=== PATIENT | male | born 1970 | race Caucasian/White ===

== ENCOUNTER 2022-08-07 17:04 | Inpatient (IN) | payer BC, OTHER ==
[2022-08-07] MEDS ORDERED: ASPIRIN 81 MG PO STA (17:18)
[2022-08-07] MEDS ORDERED: NITROGLYCERIN OINT 1 INCH/GM PACKET TOPICAL STA (17:18)
[2022-08-07] MEDS ORDERED: HEPARIN SODIUM 1,000 UN/ML (10ML VL) IV ONE ×2 (17:18→18:20)
[2022-08-07] MEDS: NITROGLYCERIN SL TABS 0.4 MG TAB SUBLINGUAL STA ×2 (17:22→17:38)
--- NOTE | 2022-08-07 17:28 | ED ---
General Adult HPI - General Chief complaint: Chest Pain Stated complaint: chest pain Time Seen by Provider: 08/07/22 17:10 Source: patient, RN notes reviewed, old records reviewed Mode of arrival: ambulatory Limitations: no limitations - History of Present Illness Initial comments: This is a 51-year-old male who presents emergency Department complaining of chest heaviness for the last couple of hours. Patient states it radiates to the left upper back. Patient states he has a positive family history and he is a smoker. Patient denies any diabetes high blood pressure high cholesterol that he knows of. Patient denies shortness of breath or any diaphoretic episodes. Patient denies nausea or vomiting. Patient denies any recent fever chills or c ough. Patient states had no heart history that he knows of. Patient denies any swelling to the legs or calf tenderness. Patient denies headache patient denies numbness or weakness. Patient denies any lightheadedness or dizziness - Related Data Allergies Allergy/AdvReac Type Severity Reaction Status Date / Time Penicillins Allergy Unknown Verified 08/07/22 17:09 Review of Systems ROS Statement: Those systems with pertinent positive or pertinent negative responses have been documented in the HPI. ROS Other: All systems not noted in ROS Statement are negative. Past Medical History Past Medical History: No Reported History History of Any Multi-Drug Resistant Organisms: None Reported Past Surgical History: Orthopedic Surgery Additional Past Surgical History / Comment(s): hip replacements Past Psychological History: No Psychological Hx Reported Smoking Status: Current every day smoker Past Alcohol Use History: Occasional Past Drug Use History: None Reported General Exam - General Exam Comments Initial Comments: GENERAL: Patient is well-developed and well-nourished. Patient is nontoxic and well- hydrated and is in mild distress. ENT: Neck is soft and supple. No significant lymphadenopathy is noted. Oropharynx is clear. Moist mucous membranes. Neck has full range of motion without eliciting any pain. EYES: The sclera were anicteric and conjunctiva were pink and moist. Extraocular movements were intact and pupils were equal round and reactive to light. Eyelids were unremarkable. PULMONARY: Unlabored respirations. Good breath sounds bilaterally. No audible rales rhonc hi or wheezing was noted. CARDIOVASCULAR: There is a regular rate and rhythm without any murmurs gallops or rubs. ABDOMEN: Soft and nontender with normal bowel sounds. SKIN: Skin is clear with no lesions or rashes and otherwise unremarkable. NEUROLOGIC: Patient is alert and oriented x3. Cranial nerves II through XII are grossly intact. Motor and sensory are also intact. Normal speech, volume and content. Symmetrical smile. MUSCULOSKELETAL: Normal extremities with adequate strength and full range of motion. LYMPHATICS: No significant lymphadenopathy is noted PSYCHIATRIC: Normal psychiatric evaluation. Limitations: no limitations Course Vital Signs 08/07/22 08/07/22 17:07 17:26 Temperature 97.9 F 98.8 F Pulse Rate 74 108 H Respiratory 16 16 Rate Blood Pressure 184/89 200/114 O2 Sat by Pulse 97 98 Oximetry Medical Decision Making - Medical Decision Making EKG was sinus rhythm at 67 bpm CO interval 238 QRS is under 16 QT interval 383 QTC is 398. Patient's EKG showed ST segment elevation in leads II, III, and F aVF. I called a STEMI overhead. I spoke with Dr. James he agreed to come down and see the patient immediately. Chest x-ray shows no acute abnormality. Critical Care Time Critical Care Time: Yes Total Critical Care Time: 35 Disposition Clinical Impression: Dissection of thoracic aorta, ST elevation myocardial infarction (STEMI) Disposition: ADMITTED IP TO THIS HOSP Referrals: Alessio Clifton MD [Primary Care Provider] - 1-2 days Time of Disposition: 17:28
[2022-08-07 17:41] LABS: Basophils # (A) 0.1 k/uL (0-0.2); Basophils % (A) 1 %; Eosinophils # (A) 0.2 k/uL (0-0.7); Eosinophils % (A) 2 %; HCT 50.2 % (39.0-53.0); HGB 16.7 gm/dL (13.0-17.5); Lymphocytes # (A) 3.4 k/uL (1.0-4.8); Lymphocytes % (A) 28 %; MCH 30.2 pg (25.0-35.0); MCHC 33.2 g/dL (31.0-37.0); MCV 90.8 fL (80.0-100.0); Mean Platelet Volume 8.9; Monocytes # (A) 0.7 k/uL (0-1.0); Monocytes % (A) 6 %; Neutrophils # (A) 7.3 k/uL (1.3-7.7); Neutrophils % (A) 60 %; Platelet Count 240 k/uL (150-450); RBC 5.53 m/uL (4.30-5.90); RDW 13.8 % (11.5-15.5); WBC 12.1 k/uL (3.8-10.6)
[2022-08-07 17:44] LABS: ALT 89 U/L (4-49); AST 75 U/L (17-59); African American GFR (CKD) >90 (>60 ml/min/1.73 sqM); Albumin 5.1 g/dL (3.5-5.0); Alkaline Phosphatase 109 U/L (38-126); Anion Gap 17 mmol/L; Blood Urea Nitrogen 13 mg/dL (9-20); Calcium 9.9 mg/dL (8.4-10.2); Carbon Dioxide 20 mmol/L (22-30); Chloride 103 mmol/L (98-107); Glucose 257 mg/dL (74-99); Magnesium 2.1 mg/dL (1.6-2.3); Non-African American GFR(CKD) >90 (>60 ml/min/1.73 sqM); Potassium 3.8 mmol/L (3.5-5.1); Sodium 140 mmol/L (137-145); Total Bilirubin 0.3 mg/dL (0.2-1.3); Total Protein 8.1 g/dL (6.3-8.2)
--- NOTE | 2022-08-07 17:47 | XR ---
EXAMINATION TYPE: XR chest 1V portable DATE OF EXAM: 08/07/2022 COMPARISON: 07/17/2012 HISTORY: Chest pain TECHNIQUE: FINDINGS: Heart and mediastinum appear normal. Lungs are clear. Diaphragm is normal. Bony thorax is i ntact. The pulmonary vascularity is normal. IMPRESSION: Normal chest. No change.
[2022-08-07] MEDS ORDERED: HEPARIN SODIUM 1,000 UN/ML (10ML VL) ONE (17:59)
[2022-08-07] MEDS ORDERED: fentaNYL (PF) 50 MCG/ML 2 ML AMP ONE (18:00)
[2022-08-07] MEDS ORDERED: SODIUM CHLORIDE 0.9% 1,000 ML IV ONE (18:02)
[2022-08-07 18:03] LABS: Partial Thromboplastin Time 23.5 sec (22.0-30.0); Prothrombin Time 10.5 sec (9.0-12.0)
[2022-08-07] MEDS ORDERED: fentaNYL (PF) 50 MCG/ML 2 ML AMP IV ONE (18:03)
[2022-08-07] MEDS ORDERED: MIDAZOLAM 2 MG/2 ML VIAL IV ONE (18:03)
[2022-08-07] MEDS ORDERED: LIDOCAINE 1% INJ 10MG/ML (30 ML VIAL-PF) SQ ONE (18:04)
[2022-08-07] MEDS ORDERED: TICAGRELOR 90 MG TAB ONE (18:19)
[2022-08-07] MEDS ORDERED: TICAGRELOR 90 MG TAB PO ONE (18:21)
[2022-08-07] MEDS ORDERED: NITROGLYCERIN 1000MCG/10ML SYRINGE INTRACORON ONE (18:25)
[2022-08-07] MEDS ORDERED: ZOLPIDEM 5 MG TAB PO PRN (18:39)
[2022-08-07] MEDS ORDERED: MAG HYDROX/AL HYDROX/SIMETH 30 ML CUP PO PRN (18:39)
[2022-08-07] MEDS ORDERED: NITROGLYCERIN SL TABS 0.4 MG TAB SUBLINGUAL PRN (18:39)
[2022-08-07] MEDS ORDERED: RX INFO: IV CONTRAST WAS GIVEN 1 EACH MISC MISCELLANE PRN (18:39)
[2022-08-07] MEDS ORDERED: IOPAMIDOL-370 125ML BTL INJ ONE (18:39)
[2022-08-07] MEDS ORDERED: ATROPINE SULFATE 0.1 MG/ML 10ML SYRINGE IV PRN (18:39)
--- NOTE | 2022-08-07 18:44 | P.PCN ---
Date of Procedure: 08/07/22 Operative Findings: PERCUTANEOUS CORONARY INTERVENTION Performing physician Rasheed Rowe M.D. Procedure Performed: 1. Successful stenting of the proximal RCA using 4.0 x 38 mm Xience drug-eluting stent with an excellent angiographic results. 2. Intravascular ultrasound of the RCA 3. Selective right common femoral artery and a Indication: Acute inferior ST patient myocardial infarction Approach: Right common femoral artery Complications: None Level of Sedation: Moderate with a sedation length of 19 minutes Procedure Discussion: Please see a heart catheterization was performed earlier by Dr. James. Subsequently I did engage the RCA using a JR4 guiding catheter. I did where it using a run-through wire. Balloon angioplasty was achieved using 2.5 x 15 mm balloon. After that and the vascular ultrasound of the RCA was performed and revealed a diameter of at least 4 mm. For that reason I deployed 40 by 38 mm stent where the stent was positioned under fluoroscopy guidance and deployed under 12 cesar. Postdilatation was performed using 4.5 mm noncompliant balloon which was inflated under 18 cesar for 20 seconds in the proximal and mid and distal portions of the stent. Final angiogram showed excellent angiographic results and the procedure was completed without any complications Postprocedure Management: 1. Dual antiplatelet therapy using Brilinta for 12 month 2. Echocardiogram was Doppler 3. ICU admission
[2022-08-07] MEDS ORDERED: SODIUM CHLORIDE 0.9% 1,000 ML in EMPTY BAG 1 BAG IV SCH (18:45)
[2022-08-07 19:03] LABS: Glucose,Whole Blood 215 mg/dL (70-110)
[2022-08-07] MEDS: METOPROLOL TARTRATE 25 MG TAB PO SCH (20:12)
[2022-08-07] MEDS: ATORVASTATIN 80 MG TAB PO SCH (20:13)
[2022-08-07] MEDS ORDERED: DEXTROSE 50% SYRINGE 50 ML IVP PRN ×2 (20:49)
[2022-08-07] MEDS ORDERED: lisinopriL 5 MG TAB PO STA (22:10)
[2022-08-07] MEDS ORDERED: traMADol 50 MG TAB PO SCH (22:15)
[2022-08-07] MEDS ORDERED: traMADol 50 MG TAB PO PRN (22:23)
[2022-08-08] MEDS: INSULIN ASPART (NovoLOG) 100 UNIT/ML VIAL SQ SCH ×5 (00:03→20:10)
--- NOTE | 2022-08-08 05:08 | CONS ---
CONSULTATION CHIEF COMPLAINT: Chest pain. HISTORY OF PRESENT ILLNESS: Herbert is a 51-year-old gentleman with history of smoking and strong family history of coronary artery disease, who presented to hospital complaining of chest pain. His chest discomfort started about 1 to 2 hours prior to arrival and did initial EKG showed ST-segment elevation in the inferior leads due to which I was called to the emergency room, where I evaluated the patient and found that the patient was having STEMI and activated the general laborer. The patient was hemodynamically stable and not in distress. His labs were pending at this time. the patient currently in the general laborer has had a STEMI and the thermite bomb loader is currently working in these extraordinary and unusual circumstances. We are working expeditiously to perform primary angioplasty as soon as it is possible. The second general laborer team has been activated. The nurses from the ICU are coming to the general laborer to move the . PAST MEDICAL HISTORY: Negative for hypertension, diabetes, dyslipidemia. MEDICATIONS: He states he does not take any. ALLERGIES: None. FAMILY HISTORY: Significant for premature coronary artery disease. SOCIAL HISTORY: The patient quit smoking. There is no history of EtOH abuse or drug abuse. REVIEW OF SYSTEMS: HEENT: Unremarkable. CARDIAC: As described above. RESPIRATORY: Negative. GI: Negative. GENITOURINARY: Negative. ALLERGY/IMMUNOLOGY: Negative. SKIN: Negative. MUSCULOSKELETAL: Significant for arthritis. PSYCHOSOCIAL: Negative. DERM: Negative. CONSTITUTIONAL: Negative. ONCOLOGICAL: Negative. TEST DRILLER: Negative. Rest of the system review is not relevant. PHYSICAL EXAMINATION: GENERAL: Comfortable at rest. VITAL SIGNS: Stable. CHEST: Reveals good air entry bilaterally. HEART: Reveals first and second heart sounds. No gallop. ABDOMEN: Soft. EXTREMITIES: Did not reveal any edema. Peripheral pulses are felt. ASSESSMENT: Acute inferior wall myocardial infarction. PLAN: The patient will undergo primary angioplasty. MMODL / IJN: [id number] /
--- NOTE | 2022-08-08 05:16 | CC ---
CARDIAC CATHETERIZATION REPORT INDICATION: Acute inferior wall myocardial infarction. PROCEDURE NOTE: After obtaining informed consent, left heart catheterization, coronary angiogram were performed via the right femoral artery using standard Leta catheters. The patient tolerated the procedure well without any obvious immediate complications. Total sedation time was 10 minutes. FINDINGS: 1. HEMODYNAMICS: Left ventricular end-diastolic pressure is 23 mm. There is no significant gradient across the aortic valve. 2. LEFT VENTRICULOGRAM: Left ventriculogram is not performed. 3. ANGIOGRAPHIC DATA: a.Left main coronary artery: Left main coronary artery is a normal-sized vessel and is free of stenosis. Divides into left anterior descending coronary artery and circumflex coronary artery. LAD and its branches are free of significant stenosis. Circumflex coronary artery gives off 2 OM branches, and then the AV groove circ appears chronically occluded. b.Right coronary artery is a large-dominant vessel. There is an area of plaque rupture, ulceration, and a 95% stenosis in the proximal RCA. 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 PLAN: The patient will undergo angioplasty of the right coronary artery by Dr. Rowe. KWAME / NICKYN: [id number] /
[2022-08-08 06:57] LABS: Glucose,Whole Blood 181 mg/dL (70-110)
--- NOTE | 2022-08-08 07:01 | P.PN ---
Subjective Progress Note Date: 08/08/22 Principal diagnosis: Inferior ST patient myocardial infarction This is a 51-year-old gentleman who presented to the hospital with a chest discomfort and was diagnosed with inferior ST elevation myocardial infarction be he underwent an emergent heart catheterization and that revealed critical disease involving the RCA. The patient underwent successful stenting of the RCA. The procedure was performed yesterday from right groin approach. He was seen this morning. He remains stable from a cardiovascular standpoint of view beside the pressure being slightly on the higher side. I'm going to add lisinopril to the current medical regimen. Otherwise he remains in sinus mech anism. No arrhythmia noted. No symptoms of chest pain or chest discomfort and no shortness of breath. He is on dual antiplatelet therapy along with high intensity statin. An echo still pending. From a cardiac standpoint of view, the patient possibly can be transferred to 3 S. from the intensive care unit. We'll continue monitor the patient for additional 24 hours to 48 hours. We will follow-up on the echocardiogram which is still pending. Also the right groin is soft and nontender and without any bruises. Objective - Vital Signs Vital signs: Vital Signs Temp 98.0 F 08/08/22 04:00 Pulse 62 08/08/22 06:00 Resp 15 08/08/22 06:00 BP 135/81 08/08/22 06:00 Pulse Ox 91 L 08/08/22 06:00 FiO2 Intake & Output 08/07/22 08/07/22 08/08/22 06:59 18:59 06:59 Intake Total 550 1240 Output Total 950 Balance 550 290 Weight 90.718 kg 95.4 kg Intake: IV 550 Intake, IV Titration 840 Amount Sodium Chloride 0.9% 1, 840 000 ml In Empty Bag 1 bag @ 75 mls/hr IV .[id number] [facility] Rx#:[id number] Oral 400 Output: Urine 950 Other: Voiding Method Urinal - Constitutional General appearance: Present: no acute distress - Respiratory Respiratory: bilateral: CTA - Cardiovascular Rhythm: regular Heart sounds: normal: S1, S2 - Labs CBC & Chem 7: 08/07/22 17:22 08/07/22 17:22 Labs: Abnormal Lab Results - Last 24 Hours (Table) 08/07/22 08/07/22 08/07/22 Range/Units 17:22 17:22 17:22 WBC 12.1 H (3.8-10.6) k/uL Carbon Dioxide 20 L (22-30) mmol/L Glucose 257 H (74-99) mg/dL POC Glucose (mg/dL) (70-110) mg/dL Hemoglobin A1c (0.0-6.0) % AST 75 H (17-59) U/L ALT 89 H (4-49) U/L Troponin I 0.138 H* (0.000-0.034) ng/mL Albumin 5.1 H (3.5-5.0) g/dL 08/07/22 08/07/22 08/08/22 Range/Units 17:44 19:01 06:55 WBC (3.8-10.6) k/uL Carbon Dioxide (22-30) mmol/L Glucose (74-99) mg/dL POC Glucose (mg/dL) 215 H 181 H (70-110) mg/dL Hemoglobin A1c 11.2 H (0.0-6.0) % AST (17-59) U/L ALT (4-49) U/L Troponin I (0.000-0.034) ng/mL Albumin (3.5-5.0) g/dL Assessment and Plan Assessment: Assessment #[address] elevation myocardial infarction #2 status post PCI of the RCA #3 Critical disease involving a small to medium left circumflex #4 Hypertension #5 Dyslipidemia Plan #1 continue dual antiplatelet therapy #2 continue high intensity statin #3 add lisinopril to the current medical regimen #4 continue beta dahlia #5 follow-up on the echocardiogram
[2022-08-08 07:17] LABS: African American GFR (CKD) >90 (>60 ml/min/1.73 sqM); Non-African American GFR(CKD) >90 (>60 ml/min/1.73 sqM)
[2022-08-08] MEDS: METOPROLOL TARTRATE 25 MG TAB PO SCH ×2 (08:46→20:13)
[2022-08-08] MEDS: lisinopriL 10 MG TAB PO SCH (08:46)
[2022-08-08] MEDS: TICAGRELOR 90 MG TAB PO SCH ×2 (08:46→20:13)
[2022-08-08] MEDS: ASPIRIN 81 MG PO SCH (08:47)
[2022-08-08] MEDS ORDERED: lisinopriL 5 MG TAB PO SCH (09:00)
[2022-08-08 10:31] VITALS: BMI 32.9
--- NOTE | 2022-08-08 11:03 | P.HPIM ---
History of Present Illness H&P Date: 08/08/22 Chief Complaint: Chest heaviness History of present illness; Patient is a 51-year-old gentleman with no significant past medical history presented to the ER because of chest heaviness that started a couple of hours before his arrival to ER. Patient denied any complaint of any shortness of breath. Denied any nausea or vomiting. Patient was worked up in the ER, initial EKG showed ST elevation in leads II, III and aVF. Patient was taken to emergent cardiac catheterization and had stenting of RCA. Patient currently on dual Antiplatelet therapy. Blood pressure is elevated, currently on lisinopril and Lopressor. Patient currently is chest pa in-free. Denies any shortness of breath. Vital signs stable REVIEW OF SYSTEMS: CONSTITUTIONAL: No fever, no malaise, no fatigue. HEENT: No recent visual problems or hearing problems. Denied any sore throat. CARDIOVASCULAR: No chest pain, orthopnea, PND, no palpitations, no syncope. PULMONARY: No shortness of breath, no cough, no hemoptysis. GASTROINTESTINAL: No diarrhea, no nausea, no vomiting, no abdominal pain. NEUROLOGICAL: No headaches, no weakness, no numbness. HEMATOLOGICAL: Denies any bleeding or petechiae. GENITOURINARY: Denies any burning micturition, frequency, or urgency. MUSCULOSKELETAL/RHEUMATOLOGICAL: Denies any joint pain, swelling, or any muscle pain. ENDOCRINE: Denies any polyuria or polydipsia. The rest of the 14-point review of systems is negative. PHYSICAL EXAMINATION: GENERAL: The patient is alert and oriented x3, not in any acute distress. Well developed, well nourished. HEENT: Pupils are round and equally reacting to light. EOMI. No scleral icterus. No conjunctival pallor. Normocephalic, atraumatic. No pharyngeal erythema. No thyromegaly. CARDIOVASCULAR: S1 and S2 present. No murmurs, rubs, or gallops. PULMONARY: Chest is clear to auscultation, no wheezing or crackles. ABDOMEN: Soft, nontender, nondistended, normoactive bowel sounds. No palpable organomegaly. MUSCULOSKELETAL: No joint swelling or deformity. EXTREMITIES: No cyanosis, clubbing, or pedal edema. Right groin site looks good, no evidence of any hematoma NEUROLOGICAL: Gross neurological examination did not reveal any focal deficits. SKIN: No rashes. Assessment #[address] elevation myocardial infarction #2 status post PCI of the RCA #3 Critical disease involving a small to medium left circumflex #4 Hypertension #5 Dyslipidemia Plan Monitor vital signs monitor CBC monitor electrolytes. Continue aspirin and brilinta Continue Lipitor 80 mg daily Continue lisinopril and Lopressor Ordered HbA1c SCDs for dvt pp CODE STATUS is full code Past Medical History Past Medical History: No Reported History History of Any Multi-Drug Resistant Organisms: None Reported Past Surgical History: Orthopedic Surgery Additional Past Surgical History / Comment(s): hip replacements Past Anesthesia/Blood Transfusion Reactions: No Reported Reaction Past Psychological History: No Psychological Hx Reported Smoking Status: Current every day smoker Past Alcohol Use History: Occasional Past Drug Use History: None Reported Medications and Allergies Home Medications Medication Instructions Recorded Confirmed Type No Known Home Medications 08/07/22 08/07/22 History Allergies Allergy/AdvReac Type Severity Reaction Status Date / Time Penicillins Allergy Unknown Verified 08/07/22 17:31 Physical Exam Vitals: Vital Signs Temp Pulse Pulse Pulse Resp BP BP 08/08/22 08:00 98.2 F 94 18 147/95 08/08/22 07:26 08/08/22 07:00 80 15 133/75 08/08/22 06:00 62 15 135/81 08/08/22 05:00 59 L 16 123/83 08/08/22 04:00 98.0 F 61 69 14 131/77 08/08/22 03:00 60 8 L 121/81 08/08/22 02:30 65 15 08/08/22 02:00 66 14 08/08/22 01:30 63 16 128/73 08/08/22 01:00 64 20 08/08/22 00:30 61 19 08/08/22 00:01 64 16 140/84 08/08/22 00:00 97.8 F 66 12 135/81 08/07/22 23:54 64 17 08/07/22 23:30 60 16 144/87 08/07/22 23:00 73 14 175/106 08/07/22 22:30 66 18 158/94 08/07/22 22:00 72 19 165/110 08/07/22 21:30 69 19 160/97 08/07/22 21:00 17 159/98 08/07/22 20:30 72 10 L 174/101 09/14/22 20:00 75 66 8 L 162/95 08/07/22 19:30 67 10 L 155/87 08/07/22 19:15 69 16 163/88 08/07/22 19:01 98.1 F 71 18 155/96 08/07/22 17:45 86 18 160/87 08/07/22 17:30 173/87 08/07/22 17:26 98.8 F 108 H 16 200/114 08/07/22 17:07 97.9 F 74 16 184/89 Pulse Ox 08/08/22 08:00 93 L 08/08/22 07:26 95 08/08/22 07:00 95 08/08/22 06:00 91 L 08/08/22 05:00 96 08/08/22 04:00 91 L 08/08/22 03:00 96 08/08/22 02:30 96 08/08/22 02:00 95 08/08/22 01:30 95 08/08/22 01:00 95 08/08/22 00:30 96 08/08/22 00:01 94 L 08/08/22 00:00 96 08/07/22 23:54 08/07/22 23:30 95 08/07/22 23:00 95 08/07/22 22:30 97 08/07/22 22:00 95 08/07/22 21:30 94 L 08/07/22 21:00 96 08/07/22 20:30 97 08/07/22 20:00 96 08/07/22 19:30 94 L 08/07/22 19:15 94 L 08/07/22 19:01 96 08/07/22 17:45 98 08/07/22 17:30 08/07/22 17:26 98 08/07/22 17:07 97 Intake and Output 08/07/22 08/08/22 08/08/22 22:59 06:59 14:59 Intake Total 775 1015 Output Total 550 400 Balance 225 615 Intake: IV 550 Intake, IV Titration 225 615 Amount Sodium Chloride 0.9% 1, 225 615 000 ml In Empty Bag 1 bag @ 75 mls/hr IV .[id number] [facility] Rx#:[id number] Oral 400 Output: Urine 550 400 Other: Voiding Method Urinal Urinal Weight 90.718 kg 95.4 kg 95.4 kg Results CBC & Chem 7: 08/07/22 17:22 08/08/22 06:34 Labs: Abnormal Lab Results - Last 24 Hours (Table) 08/07/22 08/07/22 08/07/22 Range/Units 17:22 17:22 17:22 WBC 12.1 H (3.8-10.6) k/uL Carbon Dioxide 20 L (22-30) mmol/L Glucose 257 H (74-99) mg/dL POC Glucose (mg/dL) (70-110) mg/dL Hemoglobin A1c (0.0-6.0) % AST 75 H (17-59) U/L ALT 89 H (4-49) U/L Troponin I 0.138 H* (0.000-0.034) ng/mL Albumin 5.1 H (3.5-5.0) g/dL 08/07/22 08/07/22 08/08/22 Range/Units 17:44 19:01 06:55 WBC (3.8-10.6) k/uL Carbon Dioxide (22-30) mmol/L Glucose (74-99) mg/dL POC Glucose (mg/dL) 215 H 181 H (70-110) mg/dL Hemoglobin A1c 11.2 H (0.0-6.0) % AST (17-59) U/L ALT (4-49) U/L Troponin I (0.000-0.034) ng/mL Albumin (3.5-5.0) g/dL 08/08/22 Range/Units 09:09 WBC (3.8-10.6) k/uL Carbon Dioxide (22-30) mmol/L Glucose (74-99) mg/dL POC Glucose (mg/dL) (70-110) mg/dL Hemoglobin A1c (0.0-6.0) % AST (17-59) U/L ALT (4-49) U/L Troponin I 15.800 H* (0.000-0.034) ng/mL Albumin (3.5-5.0) g/dL Thrombosis Risk Factor Assmnt - Choose All That Apply Each Factor Represents 1 point: Acute [place], Age 41-60 years Thrombosis Risk Factor Assessment Total Risk Factor Score: 2 Thrombosis Risk Factor Assessment Level: Low Risk
[2022-08-08 11:51] LABS: Glucose,Whole Blood 215 mg/dL (70-110)
--- NOTE | 2022-08-08 13:51 | CA ---
Transthoracic Echo Report Name: Herbert Butterfield Age: 51 Gender: M : 1970 Exam Date: 08/08/2022 07:49 Exam Location: [place] [facility] Ht (in): 67 Wt (lb): 210 Ordering Physician: Rasheed Rowe MD ([id number]) Attending/Referring Phys: Keeler Polygraph Operator Kesha Roberson, JAKE Procedure CPT: Indications: stemi Cardiac Hx: Technical Quality: Good Contrast 1: Total Dose (mL): Contrast 2: Total Dose (mL): MEASUREMENTS (Male / Female) Normal Values 2D ECHO LV Diastolic Diameter PLAX 4.5 cm 4.2 - 5.9 / 3.9 - 5.3 cm LV Systolic Diameter PLAX 3.0 cm IVS Diastolic Thickness 1.1 cm 0.6 - 1.0 / 0.6 - 0.9 cm LVPW Diastolic Thickness 1.3 cm 0.6 - 1.0 / 0.6 - 0.9 cm LV Relative Wall Thickness 0.5 RV Internal Dim ED PLAX 2.5 cm LA Systolic Diameter LX 3.7 cm 3.0 - 4.0 / 2.7 - 3.8 cm LA Volume 47.5 cm??? 18 - 58 / 22 - 52 cm??? M-MODE Aortic Root Diameter MM 2.4 cm LA Systolic Diameter MM 3.7 cm LA Ao Ratio MM 1.6 MV E Point Septal Separation 0.5 cm AV Cusp Separation MM 1.4 cm DOPPLER MV Area PHT 3.7 cm??? Mitral E Point Velocity 109.5 cm/s Mitral A Point Velocity 73.8 cm/s Mitral E to A Ratio 1.5 MV Deceleration Time 205.7 ms MV E' Velocity 8.1 cm/s Mitral E to MV E' Ratio 13.5 TR Peak Velocity 192.5 cm/s TR Peak Gradient 14.8 mmHg Right Ventricular Systolic Press 19.8 mmHg FINDINGS Left Ventricle Left ventricular ejection fraction is estimated at 50%. Inferior basal hypokinesis. Right Ventricle Normal right ventricular size and function. Right Atrium Normal right atrial size. Left Atrium Normal left atrial size. Mitral Valve Structurally normal mitral valve. Mild mitral regurgitation. Aortic Valve Trileaflet aortic valve. Aortic valve sclerosis. Tricuspid Valve Structurally normal tricuspid valve. Pulmonic Valve Structurally normal pulmonic valve. Pericardium Normal pericardium. Aorta Normal size aortic root and proximal ascending aorta. CONCLUSIONS Normal LV size and systolic function Mild inferior wall hypokinesis Previewed by: Dr. Yang Ritchie MD (Electronically Signed) Final Date: 08 August 2022 13:51
[2022-08-08 16:33] LABS: Glucose,Whole Blood 199 mg/dL (70-110)
[2022-08-08 20:06] LABS: Glucose,Whole Blood 146 mg/dL (70-110)
[2022-08-08] MEDS: ATORVASTATIN 80 MG TAB PO SCH (20:13)
[2022-08-09 05:57] LABS: Glucose,Whole Blood 189 mg/dL (70-110)
[2022-08-09 06:05] VITALS: RESP 18
[2022-08-09] MEDS: INSULIN ASPART (NovoLOG) 100 UNIT/ML VIAL SQ SCH ×2 (06:14→12:05)
[2022-08-09 07:30] LABS: Basophils # (A) 0.2 k/uL (0-0.2); Basophils % (A) 2 %; Eosinophils # (A) 0.2 k/uL (0-0.7); Eosinophils % (A) 2 %; HCT 49.8 % (39.0-53.0); HGB 15.8 gm/dL (13.0-17.5); Lymphocytes # (A) 2.8 k/uL (1.0-4.8); Lymphocytes % (A) 21 %; MCH 28.8 pg (25.0-35.0); MCHC 31.8 g/dL (31.0-37.0); MCV 90.7 fL (80.0-100.0); Mean Platelet Volume 8.7; Monocytes % (A) 8 %; Neutrophils # (A) 8.6 k/uL (1.3-7.7); Neutrophils % (A) 65 %; Platelet Count 213 k/uL (150-450); RDW 13.5 % (11.5-15.5); WBC 13.1 k/uL (3.8-10.6)
[2022-08-09 08:11] LABS: African American GFR (CKD) >90 (>60 ml/min/1.73 sqM); Anion Gap 13 mmol/L; Blood Urea Nitrogen 17 mg/dL (9-20); Calcium 9.1 mg/dL (8.4-10.2); Carbon Dioxide 18 mmol/L (22-30); Chloride 107 mmol/L (98-107); Glucose 187 mg/dL (74-99); Non-African American GFR(CKD) >90 (>60 ml/min/1.73 sqM); Potassium 4.4 mmol/L (3.5-5.1); Sodium 138 mmol/L (137-145)
[2022-08-09] MEDS: METOPROLOL TARTRATE 25 MG TAB PO SCH (09:16)
[2022-08-09] MEDS: TICAGRELOR 90 MG TAB PO SCH (09:16)
[2022-08-09] MEDS: ASPIRIN 81 MG PO SCH (09:16)
[2022-08-09] MEDS: lisinopriL 10 MG TAB PO SCH (09:16)
[2022-08-09 12:03] LABS: Glucose,Whole Blood 173 mg/dL (70-110)
--- NOTE | 2022-08-09 13:41 | P.PN ---
Subjective This is a 51-year-old male with past medical history of smoking and strong family history of coronary artery disease. He presents to the hospital with complaints of chest pain. EKG revealed ST segment elevation in the inferior leads. Troponin 15.8. Patient underwent cardiac catheterization which revealed 95% proximal RCA stenosis with an area of plaque rupture and ulceration. Left main free of stenosis. LAD free of significant stenosis. Circumflex coronary artery, AV groove circumflex appears chronically occluded. Patient underwent PCI to the RCA by Dr. Rowe on 08/07. 08/09 Patient seen and examined at bedside, distress. He denies any chest pain or shortness of breath. Ambulating the halls with no difficulty. His vital signs are stable. Echocardiogram revealed EF of 50%, inferior basal hypokinesis. GENERAL: Well-appearing, well-nourished and in no acute distress. NECK: Supple without JVD or thyromegaly. LUNGS: Breath sounds clear to auscultation bilaterally. Respiration equal and unlabored. No wheezes, rales or rhonchi. HEART: Regular rate and rhythm without murmurs, rubs or gallops. S1 and S2 heard. EXTREMITIES: Normal range of motion, no edema. No clubbing or cyanosis. Peripheral pulses intact. SKIN: Right groin, clean dry intact no hematoma, minimal bruising ASSESSMENT Acute Inferior STEMI Status post PCI of the RCA on 08/07 Critical disease involving a small to medium left circumflex Hypertension Dyslipidemia Chronic nicotine dependence Family history of coronary artery disease PLAN Patient seen and evaluated by Dr. Rowe, from cardiology perspective, patient can be discharged home today. Continue dual antiplatelet therapy with aspirin and Brilinta Continue metoprolol tartrate, lisinopril and high intensity statin. Follow up with Dr. James in one week Nurse Practitioner note has been reviewed, I agree with a documented findings and plan of care. Patient was seen and examined. Objective - Vital Signs Vital signs: Vital Signs Temp 97.2 F L 08/09/22 08:00 Pulse 76 08/09/22 08:00 Resp 18 08/09/22 08:00 BP 136/84 08/09/22 08:00 Pulse Ox 98 08/09/22 08:00 FiO2 Intake & Output 08/08/22 08/09/22 08/09/22 18:59 06:59 18:59 Intake Total 970 240 Output Total 400 Balance -400 970 240 Weight 95.4 kg Intake: Oral 970 240 Output: Urine 400 Other: Voiding Method Toilet Urinal # Voids 2 2 - Labs CBC & Chem 7: 08/09/22 07:01 08/09/22 07:01 Labs: Abnormal Lab Results - Last 24 Hours (Table) 08/08/22 08/08/22 08/09/22 Range/Units 16:32 20:05 05:56 WBC (3.8-10.6) k/uL Neutrophils # (1.3-7.7) k/uL Carbon Dioxide (22-30) mmol/L Glucose (74-99) mg/dL POC Glucose (mg/dL) 199 H 146 H 189 H (70-110) mg/dL 08/09/22 08/09/22 08/09/22 Range/Units 07:01 07:01 11:48 WBC 13.1 H (3.8-10.6) k/uL Neutrophils # 8.6 H (1.3-7.7) k/uL Carbon Dioxide 18 L (22-30) mmol/L Glucose 187 H (74-99) mg/dL POC Glucose (mg/dL) 173 H (70-110) mg/dL
[2022-08-09 14:19] VITALS: BP 116/78; PULSE 66; TEMP 97.3
--- NOTE | 2022-08-11 02:56 | CONS ---
CONSULTATION CHIEF COMPLAINT: Chest pain. HISTORY OF PRESENT ILLNESS: Herbert is a 51-year-old gentleman with no significant past medical history, who presented to hospital complaining of precordial chest pressure, it came on suddenly, severe intensity, precordial, describes it as heaviness that radiates to his back. He is a smoker and has strong family history of coronary artery disease. His EKG on presentation revealed ST-segment elevation in the inferior leads and Cardiology had been consulted for the same. At the time of my evaluation, the patient was feeling better. Chest discomfort was improving, but still had persistent ST elevation. I advised the patient to undergo emergent cardiac catheterization with a view to performing angioplasty. At the time the patient arrived, there was a patient already in the warehouse laborer with the warehouse laborer team involved in taking care of the patient. We were expeditiously able to bring staff in to open a second warehouse laborer and proceed with the cardiac catheterization under my guidance. Nurses from the ICU have come to help move the previous patient out of the warehouse laborer and we proceeded to perform cardiac catheterization expeditiously. PAST MEDICAL HISTORY: Negative for hypertension, diabetes, and dyslipidemia. MEDICATIONS: None. ALLERGIES: None. FAMILY HISTORY: Significant for premature coronary artery disease. SOCIAL HISTORY: Significant for smoking. There is no history of EtOH abuse or drug abuse. REVIEW OF SYSTEMS: HEENT: Unremarkable. CARDIAC: As described above. RESPIRATORY: Negative. GI: Negative. GENITOURINARY: Negative. ALLERGY/IMMUNOLOGY: Negative. SKIN: Negative. MUSCULOSKELETAL: Negative. ENDOCRINE: Negative. DERM: Negative CONSTITUTIONAL: Negative. ONCOLOGICAL: Negative. SPEECH LANGUAGE PATHOLOGIST PRN: Negative. Rest of the system review is not relevant. PHYSICAL EXAMINATION: GENERAL: The patient is comfortable at rest. VITAL SIGNS: Stable. There is no jugular venous distention. Carotid upstroke is normal. There is no bruit. CHEST: Clear to auscultation and percussion. HEART: First and second heart sounds. No gallop. No murmur. No rub. ABDOMEN: Soft and nontender. EXAMINATION: Extremities did not reveal any edema. Peripheral pulses are felt. LABORATORY DATA: Labs are pending at this time. DIAGNOSTIC DATA: EKG shows acute ST-segment elevation. ASSESSMENT: Acute inferior wall myocardial infarction. PLAN: The patient will be taken for cardiac catheterization with a view to perform primary angioplasty. He has received heparin and aspirin and the rest of the usual care by the emergency room physicians. MMODL / IJN: [id number] /
--- NOTE | 2022-08-11 11:34 | P.DS ---
Providers Date of admission: 08/07/22 17:28 Expected date of discharge: 08/09/22 Attending physician: Joselito Aguirre Consults: 08/07/22 18:39 Consult Physician Routine Consulting Provider: [facility] Consult Reason/Comments: Post Interventional Patient Do you want consulting provider notified?: Already Contacted Primary care physician: Alessio Clifton [facility] Course: 51-year-old gentleman with no significant past medical history presented to the ER because of chest heaviness that started a couple of hours before his arrival to ER. Patient denied any complaint of any shortness of breath. Denied any nausea or vomiting. Patient was worked up in the ER, initial EKG showed ST elevation in leads II, III and aVF. Patient was taken to emergent cardiac catheterization and had stenting of RCA. Patient currently on dual Antiplatelet therapy. Blood pressure is elevated, currently on lisinopril and Lopressor. Patient currently is chest pain-free. Denies any shortness of breath. Vital signs stable #[address] elevation myocardial infarction #2 status post PCI of the RCA #3 Critical disease involving a small to medium left circumflex #4 Hypertension #5 Dyslipidemia ----Continue aspirin and brilinta Continue Lipitor 80 mg daily Continue lisinopril and Lopressor Follow up with Dr. James in one week Plan - Discharge Summary New Discharge Prescriptions: New Atorvastatin [Lipitor] 80 mg PO HS #90 tab Nitroglycerin Sl Tabs [Nitrostat] 0.4 mg SUBLINGUAL Q5M PRN #25 tab PRN Reason: Chest Pain Aspirin 81 mg PO DAILY #90 tab Ticagrelor [Brilinta] 90 mg PO BID #60 tab Metoprolol Tartrate [Lopressor] 25 mg PO BID #60 tab lisinopriL [Zestril] 10 mg PO DAILY #90 tab Discharge Medication List Aspirin 81 mg PO DAILY #90 tab 08/09/22 [Rx] Atorvastatin [Lipitor] 80 mg PO HS #90 tab 08/09/22 [Rx] Metoprolol Tartrate [Lopressor] 25 mg PO BID #60 tab 08/09/22 [Rx] Nitroglycerin Sl Tabs [Nitrostat] 0.4 mg SUBLINGUAL Q5M PRN #25 tab 08/09/22 [Rx] Ticagrelor [Brilinta] 90 mg PO BID #60 tab 08/09/22 [Rx] lisinopriL [Zestril] 10 mg PO DAILY #90 tab 08/09/22 [Rx] Follow up Appointment(s)/Referral(s): Alessio Clifton MD [Primary Care Provider] - 1-2 days (Please call and schedule appointment, no answer at this time.) Maxwell James MD [STAFF PHYSICIAN] - 1 Week (office will call with apt date and time) Patient Instructions/Handouts: *[facility] - After Heart Catheterization - Cot Assembler Instructions, Heart Attack (DC), How to Stop Smoking (DC), Heart Healthy Diet (ED), Mediterranean Diet (DC) Activity/Diet/Wound Care/Special Instructions: Cardiology Instructions After Cardiac Catheterization with Stent Placement: 1. Aspirin as anti-platelet therapy - Aspirin lessens the chance of heart attack and stroke. It helps prevent blood clots from forming, allowing the blood to flow more easily. Each day, you will take one 81 mg (non-enteric coated) tablet daily. You will be taking aspirin as a lifelong medication. Do not stop unless instructed by your doctor. 2. Anti-platelet Therapy. -In addition to aspirin, you will take ONE of the following anti-platelet medications daily. This will help prevent a clot from forming in your stent: Brilinta (ticagrelor) -You will need to take your anti-platelet medicine every day for 12 months -Please consult your heart doctor before you stop this medicine. -They may want you to continue for a longer period of time. 3. Statins -A statin medication lowers cholesterol levels in the blood. This helps slow the progression of heart disease. - Please take your statin medication as prescribed by your doctor. -You may be taking one of the following statins: Lipitor (atorvastatin) Other Medications: -ACEI/ Angiotensin II Receptor Simone (Your Medication: Lisinopril)- can help your heart work better after a heart attack and decrease the amount of damage from a heart attack -Beta simone. (Your medication: Metoprolol) Is a medication that protects your heart from stress and can prevent future heart attacks. It can slow your heart rate. It can take weeks for your body to get used to a beta simone. The dose may need to be changed a few times as your body adjusts Do not stop taking these medicines without talking to your doctor. -Take all other medicines as directed by your doctor. Do not take any extra aspirin or ibuprofen. They can increase your risk of bleeding. Many [id number] drugs contain aspirin. If you are unsure about what the drug contains, check with your pharmacist before taking it. -For mild discomfort, you may take plain Tylenol (acetaminophen). Follow dose directions, but do not take more than 4,000 mg of acetaminophen in 24 hours. Contact your doctor right away or go to the nearest hospital Emergency Room if you have: -Severe angina or chest pain. (This may be a sign of a problem with your stent.) -Excessive bruising, blood in urine/stool or black tarry stools. Healthy LifeStyle It is important to keep a heart healthy lifestyle. This can improve your long- term health and decrease your risk for heart attacks. -Quitting tobacco: the most important thing you can do to protect your health. -Managing your blood cholesterol, blood pressure, weight, and stress. -The importance of regular exercise. -Heart Healthy Diet: Include more plants in your diet. Eat lots of fresh vegetables and fresh fruits. Eat good fats: plant based oils, avocado, nuts, beans, legumes. Eat more seafood. Limit Meat. Switch to whole grains. -Avoid fried foods and animal fats and processed meats Follow up with [facility], Camille Meléndez [phone] Discharge Disposition: HOME SELF-CARE
--- NOTE | 2022-08-14 09:27 | CDI ---
Documentation Clarification Form Date: 08/12/2022 09:14:00 AM From: Katie Taylor Admit Date: 08/07/2022 05:28:00 PM Patient Name: Herbert Butterfield Visit Number: [id number] Discharge Date: 08/09/2022 04:00:00 PM ATTENTION: The Clinical Documentation Specialists (CDI) and [facility] Coding Staff appreciate your assistance in clarifying documentation. Please respond to the clarification below the line at the bottom and electronically sign. The CDI & [facility] Coding staff will review the response and follow-up if needed. Please note: Queries are made part of the Legal Health Record. If you have any questions, please contact the author of this message via ITS. Dr. 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 Clarification is requested. Did patient have dissection of thoracic aorta or was it ruled out History/Risk Factors: STEMI Clinical Indicators: Treatment: Please clarify if the dissection of thoracic aorta was ruled out or ruled in. [ ] Dissection of thoracic aorta confirmed, remains under treatment [ ] Dissection of thoracic aorta confirmed, resolved [ ] Dissection of thoracic aorta ruled out [ ] Other condition, please specify [x ] Unable to determine MTDD
== END 2022-08-09 16:00 | disposition home or self-care (01) | DRG 247 ==
LOC: EC 17:04 → 2SICU 17:28 → 3SCARD 08-08 17:06
PROVIDERS: ADMIT Hospitalist; ATTEND Hospitalist
PROC: 027034Z Dilation of Coronary Artery, One Artery with Drug-eluting Intraluminal Device, Percutaneous Approach (ICD-10-PCS; principal; 2022-08-07 18:00)
PROC: B2111ZZ Fluoroscopy of Multiple Coronary Arteries using Low Osmolar Contrast (ICD-10-PCS; 2022-08-07 18:00)
PROC: 4A023N7 Measurement of Cardiac Sampling and Pressure, Left Heart, Percutaneous Approach (ICD-10-PCS; 2022-08-07 18:00)
DX: I21.19 ST elevation (STEMI) myocardial infarction involving other coronary artery of inferior wall (principal); I25.10 Atherosclerotic heart disease of native coronary artery without angina pectoris; E78.5 Hyperlipidemia, unspecified; F17.210 Nicotine dependence, cigarettes, uncomplicated; I10 Essential (primary) hypertension; Z79.899 Other long term (current) drug therapy; Z82.49 Family history of ischemic heart disease and other diseases of the circulatory system; Z71.3 Dietary counseling and surveillance; Z88.0 Allergy status to penicillin
CPT/HCPCS: 36415; 71045; 80048; 80053; 82565; 83036; 83735; 84484; 85025; 85610; 85730; 92978; 93005; 93306; 93458; 96361; 96374; 99291

== ENCOUNTER → 2023-05-02 | Outpatient (CLI) | payer BC ==
[2023-05-02 15:52] LABS: ALT 63 U/L (10-49); AST 29 U/L (14-35); Albumin 4.9 d/dL (3.8-4.9); Albumin/Globulin Ratio 2.13 Ratio (1.60-3.17); Alkaline Phosphatase 85 U/L (41-126); BUN/Creat Ratio 17.64 Ratio (12.00-20.00); Blood Urea Nitrogen 19.4 mg/dL (9.0-27.0); Calcium 10.1 mg/dL (8.7-10.3); Carbon Dioxide 22.8 mmol/L (21.6-31.8); Chloride 108 mmol/L (96-109); Globulin 2.3 d/dL (1.6-3.3); Glucose 101 mg/dL (70-110); Sodium 141 mmol/L (135-145); Total Bilirubin 0.3 mg/dL (0.3-1.2); Total Protein 7.2 d/dL (6.2-8.2)
== END | disposition home or self-care (01) ==
LOC: LABWHC1 08:40
PROVIDERS: ATTEND Family Medicine
DX: E11.69 Type 2 diabetes mellitus with other specified complication (principal)
CPT/HCPCS: 36415; 80053; 83036

== ENCOUNTER → 2023-07-01 | Outpatient (CLI) | payer BC ==
--- NOTE | 2023-07-01 10:44 | XR ---
EXAMINATION TYPE: XR chest 2V DATE OF EXAM: 07/01/2023 COMPARISON: 08/07/2022 HISTORY: Shortness of breath TECHNIQUE: Frontal and lateral views of the chest are obtained. FINDINGS: Scattered senescent parenchymal changes noted. Hyperinflation compatible with COPD. No evidence for infiltrate. No evidence for atelectasis. Heart size is stable. Mediastinal structures are stable and grossly unremarkable. No evidence for hilar prominence. Degenerative changes dorsal spine. IMPRESSION: 1. No evidence for acute pulmonary disease.
== END | disposition home or self-care (01) ==
LOC: RADXRMAIN 09:54
PROVIDERS: ATTEND Family Medicine
DX: R06.02 Shortness of breath (principal); M54.6 Pain in thoracic spine
CPT/HCPCS: 71046

== ENCOUNTER → 2024-01-28 | Outpatient (CLI) | payer BC ==
[2024-01-28 18:05] LABS: ALT 60 U/L (10-49); AST 28 U/L (14-35); Chol/HDL Ratio 3.04 Ratio
== END | disposition home or self-care (01) ==
LOC: LABWHC1 09:16
PROVIDERS: ATTEND Internal Medicine Cardiovascular Disease
DX: E78.2 Mixed hyperlipidemia (principal)
CPT/HCPCS: 36415; 80061; 84450; 84460

== ENCOUNTER → 2025-01-24 | Outpatient (CLI) | payer BC ==
[2025-01-24 16:17] LABS: ALT 59 U/L (10-49); AST 32 U/L (14-35); Chol/HDL Ratio 2.85 Ratio; LDL Cholesterol,Calculated 53.7 mg/dL (0.0-131.0); VLDL Calculation 17.08 mg/dL (5.00-40.00)
== END | disposition home or self-care (01) ==
LOC: LABWHC1 08:30
PROVIDERS: ATTEND Internal Medicine Cardiovascular Disease
DX: E78.2 Mixed hyperlipidemia (principal)
CPT/HCPCS: 36415; 80061; 84450; 84460

== ENCOUNTER → 2025-04-08 | Outpatient (CLI) | payer BC ==
[2025-04-08 15:13] LABS: Basophils # (A) 0.05 X 10*3/uL (0.00-0.10); Basophils % (A) 0.6 %; Eosinophils # (A) 0.18 X 10*3/uL (0.04-0.35); Eosinophils % (A) 2.2 %; HCT 47.6 % (39.6-50.0); HGB 15.1 g/dL (13.0-17.0); Lymphocytes % (A) 31.8 %; MCH 28.3 pg (27.0-32.0); MCHC 31.7 g/dL (32.0-37.0); MCV 89.3 FL (80.0-97.0); Mean Platelet Volume 11.1 FL (9.5-12.2); Monocytes # (A) 0.88 X 10*3/uL (0.20-1.00); Monocytes % (A) 10.8 %; NRBC Per 100 WBC 0 X 10*3/uL (0.00-0.01); Neutrophils # (A) 4.46 X 10*3/uL (1.80-7.70); Neutrophils % (A) 54.5 %; Platelet Count 277 X 10*3/uL (140-440); RBC 5.33 X 10*6/uL (4.40-5.60); RDW 14.6 % (11.5-14.5); WBC 8.18 X 10*3/uL (4.50-10.00)
[2025-04-08 15:38] LABS: ALT 72 U/L (10-49); AST 32 U/L (14-35); Albumin 4.5 g/dL (3.8-4.9); Albumin/Globulin Ratio 1.96 Ratio (1.60-3.17); Alkaline Phosphatase 75 U/L (41-126); BUN/Creat Ratio 16.18 Ratio (12.00-20.00); Blood Urea Nitrogen 17.8 mg/dL (9.0-27.0); Calcium 9.3 mg/dL (8.7-10.3); Carbon Dioxide 22.3 mmol/L (21.6-31.8); Chloride 103 mmol/L (96-109); Chol/HDL Ratio 3.48 Ratio; Globulin 2.3 g/dL (1.6-3.3); Glucose 104 mg/dL (70-110); LDL Cholesterol,Calculated 69.8 mg/dL (0.0-131.0); Potassium 4.8 mmol/L (3.5-5.5); Prostate Specific Antigen 0.28 ng/mL (0.000-3.500); Sodium 137 mmol/L (135-145); Total Bilirubin 0.4 mg/dL (0.3-1.2); Total Protein 6.8 g/dL (6.2-8.2)
== END | disposition home or self-care (01) ==
LOC: LABWHC1 09:22
PROVIDERS: ATTEND Family Medicine
DX: Z12.5 Encounter for screening for malignant neoplasm of prostate (principal); E11.69 Type 2 diabetes mellitus with other specified complication; E78.5 Hyperlipidemia, unspecified
CPT/HCPCS: 36415; 80053; 80061; 83036; 84153; 84443; 85025